=== PATIENT | male | born 1965 | race Caucasian/White ===

== ENCOUNTER 2018-11-12 13:28 | Inpatient (IN) | payer OTHER ==
[~2018-11-12] VITALS: Ht 177.8 cm; Wt 106.6 kg
[2018-11-12 13:32] VITALS: BP 108/81
[2018-11-12] MEDS ORDERED: SYNTHROID50 MCG PO (13:50)
[2018-11-12] MEDS ORDERED: LISINOPRIL10 MG PO (13:50)
[2018-11-12] MEDS ORDERED: FLOMAX0.4 MG PO (13:50)
[2018-11-12] MEDS ORDERED: FISH OIL 1,001000 M2 PO (13:51)
[2018-11-12] MEDS ORDERED: NIACIN 500 MG500 MG PO (13:51)
[2018-11-12] MEDS ORDERED: WELLBUTRIN SR150 MG PO (13:52)
[2018-11-12 13:53] LABS: ABSOLUTE BASOPHILS 0.1 thou/uL (0.0-0.2); ABSOLUTE EOSINOPHILS 0.2 thou/uL (0.0-0.7); ABSOLUTE LYMPHOCYTES 2.1 thou/uL (0.8-5.3); ABSOLUTE MONOCYTES 0.8 thou/uL (0.0-1.2); ABSOLUTE NEUTROPHILS 5.6 thou/uL (1.6-8.1); BASOPHILS 1.3 %; HEMATOCRIT 40.1 % (42.0-52.0); HEMOGLOBIN 13.7 gm/dL (14.0-18.0); LYMPHOCYTES 24.2 %; MCH 30.2 pg (26.0-34.0); MCHC 34.3 g/dL (28.0-37.0); MONOCYTES 8.8 %; MPV 8.1 fl. (7.2-11.1); NUCLEATED RBCS 0 /100WBC; PLATELET COUNT* 234 thou/uL (150-400); POLYS 63.7 %; RBC 4.55 mil/uL (4.50-6.00); RDW-CV 14.2 % (10.5-14.5); WBC 8.8 thou/uL (4.0-11.0)
[2018-11-12 14:08] LABS: ALBUMIN 3.3 g/dL (3.4-5.0); ALKALINE PHOSPHATASE 75 U/L (46-116); ANION GAP 9 mmol/L (7-16); BUN 14 mg/dL (7-18); CALCIUM 8.4 mg/dL (8.5-10.1); CHLORIDE 107 mmol/L (98-107); CO2 27 mmol/L (21-32); GLUCOSE 106 mg/dL (70-99); LIPASE 107 U/L (73-393); MAGNESIUM 2.2 mg/dL (1.8-2.4); NT-PRO BRAIN NAT PEPTIDE 164 pg/mL (<300); POTASSIUM 3.9 mmol/L (3.5-5.1); SGOT 15 U/L (15-37); SGPT 22 U/L (30-65); SODIUM 143 mmol/L (136-145); TOTAL BILIRUBIN 0.2 mg/dL (<0.1-1.0); TOTAL PROTEIN 6.8 g/dL (6.4-8.2); TROPONIN-I LEVEL <0.06 ng/mL (<0.06)
[2018-11-12 15:14] VITALS: BP 115/61
[2018-11-12 15:30] VITALS: BP 93/71
[2018-11-12] MEDS ORDERED: PROTONIX40 M1 PO (16:11)
[2018-11-12] MEDS ORDERED: VITAMIN B-12500 MCG PO (16:12)
[2018-11-12] MEDS ORDERED: DICLOFENAC SODI25 MG PO (16:12)
[2018-11-12] MEDS ORDERED: CRANBERRY400 M1 PO (16:13)
[2018-11-12] MEDS ORDERED: CINNAMON500 MG PO (16:13)
[2018-11-12 16:24] VITALS: BP 104/57
[2018-11-12 17:21] VITALS: BP 146/62
--- NOTE | 2018-11-12 18:17 | NUR ---
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 ORDERED TRACING A-FIB RATE 150'S- PT A&O X4- CONTINENT OF BOWEL AND BLADDER- UP AD-IRA IN ROOM, STEADY GAIT NOTED- LCTA, DIMMINISHED IN BASES- RESP EVEN AND UN-LABORED- VS 97.5 20 93/71 81 97% ON RA- IV CARDIZEM IN PLACE AT 10ML/HR ORDERED- ABD SOFT/ROUND/NON-TENDER, BS X4 QUADS- PT REPORTS BM THIS AM- IV NOTED TO RIGHT AC- SKIN C/D/I WIT NOTED TATOOS- RIGHT UE PATCH NOTED THAT PT REPORTS TO BE CHANGED 1X PER WEEK TO TELL IF HE HAS BEEN USING DRUGS; BELIEVED TO BE SWEAT PATCH- PT REPORTS TO BE DAILY SMOKER- HAS OWN TEETH AND WEARS GLASSES FOR READING- CARDIOLOGY CONSULTED AND HERE TO ASSESS WITH ORDERS NOTED FOR CARDIZEM DRIP TAPER AND METOPROLOL IV PER DANE 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,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-PT FOUND TO HAVE CONVERTED TO SR AROUND 1615- UPON CHECKING BP AT 1645 PT BP NOTED TO BE 76/53, DRIP DECREASED TO 5ML/HR AND DANE ANGELES NOTIFIED WITH ORDERS TO HOLD METOPROLOL AND GIVE 250CC BOLUS THAT HAS SINCE BEEN COMPLETED- BP AT 1715 NOTED TO BE 140/62, AND AT 1810 108/69- EKG OBTAINED AND NOTED WITH SR R/T RYTHUM CHANGE AND PLACED ON CHART FOR VIEWING- ECHO ORDERED AND COMPLETED THIS SHIFT WITH RESULTS PENDING AT THIS TIME- CARDIZEM CONTINUES AT 5ML/HR, HR CURRENLTY SR AT 81- PT GIVEN LOW SODIUM DIET AND REFUSED, REGULAR DIET IN PLACE PER REFFUSAL-GOOD PO INTAKE NOTED WITH DINNER- PT DENIES ANY C/O PAIN/DISCOMFORT AT THIS TIME-CALL LIGHT AND PERSONAL BELONGINGS WITH IN REACH- PT MAKES NEEDS KNOWN- ALL NEEDS MET AT THIS TIME-WCTM
[2018-11-12 20:00] VITALS: BP 94/51
[2018-11-13] VITALS: BP 104/67
[2018-11-13 04:00] VITALS: BP 138/87
--- NOTE | 2018-11-13 06:42 | NUR ---
ASSUMED PT CARE AT 191. PT TRACING SINUS RHYTHM AT START OF SHIFT. BP 94/51 PULSE 68. CARDIZEM DRIP TURNED OFF. METOPROLOL HELD THIS SHIFT FOR LOW BP/LOW PULSE. NO CHEST PAIN THIS SHIFT, HOURLY ROUNDING COMPLETED, CALL LIGHT WITHIN REACH.
[2018-11-13 08:00] VITALS: BP 137/68
--- NOTE | 2018-11-13 09:10 | EKG ---
[place] [address] ELECTROCARDIOGRAM REPORT Name: IRENA DUONGEL Room: [address] ADM IN ..#: [id number] Admission: 11/12/18 Attend Phys: Vera Aquino MD Discharge: Date of : 61 Report #: [id number] THIS REPORT FOR: //name// 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
--- NOTE | 2018-11-13 09:11 | EKG ---
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
[2018-11-13] MEDS ORDERED: FLECAINIDE ACET50 M1 PO (09:16)
[2018-11-13] MEDS ORDERED: CARDIZEM CD120 MG PO (09:16)
[2018-11-13] MEDS ORDERED: ASPIR 8181 MG PO (09:16)
--- NOTE | 2018-11-13 09:23 | 2DMMODE ---
[place] [address] 2 D/M-MODE ECHOCARDIOGRAM Name: CHLOE DUONG Room: [address] IN [facility]#: [id number] Admission: 11/12/18 Attend Phys: Vera Aquino, Discharge: Date of : 61 Date of Service: 11/13/18 0923 Report #: [id number] THIS REPORT FOR: //name// APPROVED REPORT Study performed: 11/12/2018 16:23:17 EXAM: Comprehensive 2D, Doppler, and color-flow Echocardiogram Patient Location: In-Patient Room [facility] Status: routine BSA: 2.21 HR: 70 bpm BP: 93/71 mmHg Rhythm: NSR Other Information Study Quality: Excellent Indications Atrial Fibrillation 2D Dimensions IVSd: 12.43 (7-11mm) LVOT Diam: 22.83 (18-24mm) LVDd: 41.39 mm PWd: 11.17 (7-11mm) Ascending Ao: 36.39 (22-36mm) LVDs: 28.91 (25-40mm) Aortic Root: 37.26 mm Volumes Left Atrial Volume (Systole) LA ESV Index: 19.30 mL/m2 Aortic Valve AoV Peak Miah.: 1.36 m/s AO Peak Gr.: 7.36 mmHg LVOT Max P.30 mmHg AO Mean Gr.: 4.20 mmHg LVOT Mean P.92 mmHg LVOT Max V: 1.04 m/s AO V2 VTI: 24.16 cm LVOT Mean V: 0.62 m/s BRENDA (VTI): 3.48 cm2 LVOT V1 VTI: 20.54 cm Mitral Valve E/A Ratio: 1.08 MV Decel. Time: 193.52 ms MV E Max Miah.: 0.77 m/[place] [address] 2 D/M-MODE ECHOCARDIOGRAM Name: CHLOE DUONG Room: [address] IN .R.#: [id number] Admission: 11/12/18 Attend Phys: Vera Aquino, Discharge: Date of : 61 Date of Service: 11/13/18 0923 Report #: [id number] MV PHT: 56.12 ms MVA (PHT): 3.92 cm2 TDI E/Lateral E': 5.92 E/Medial E': 8.56 Medial E' Miah.: 0.09 m/s Lateral E' Miah.: 0.13 m/s Pulmonary Valve PV Peak Miah.: 1.06 m/s PV Peak Gr.: 4.52 mmHg Left Ventricle The left ventricle is normal size. There is normal LV segmental wall motion. Mild concentric left ventricular hypertrophy. Left ventricular systolic function is normal. The left ventricular ejection fraction is within the normal range. LVEF is 50-55%. The left ventricular diastolic function is normal. Right Ventricle The right ventricle is normal size. The right ventricular systolic function is normal. Atria The left atrium size is normal. The right atrium size is normal. Aortic Valve The aortic valve is normal in structure. No aortic regurgitation is present. There is no aortic valvular stenosis. Mitral Valve The mitral valve is normal in structure. Trace mitral regurgitation. No evidence of mitral valve stenosis. Tricuspid Valve The tricuspid valve is normal in structure. Trace tricuspid regurgitation. Pulmonic Valve The pulmonary valve is normal in structure. There is no pulmonic valvular regurgitation. Great Vessels The aortic root is normal in size. IVC is normal in size and collapses >50% [place] [address] 2 D/M-MODE ECHOCARDIOGRAM Name: CHLOE DUONG Room: [address] IN [facility]#: [id number] Admission: 11/12/18 Attend Phys: Vera Aquino, Discharge: Date of : 61 Date of Service: 11/13/18 0923 Report #: [id number] Pericardium There is no pericardial effusion. <Conclusion> Mild concentric left ventricular hypertrophy. LVEF is 50-55%. <ELECTRONICALLY SIGNED> By: Jony Cain MD, FACC 11/13/18922 2 2 Jony Cain MD, [facility] /INF
[2018-11-13] MEDS ORDERED: SYNTHROID50 MCG PO (12:28)
--- NOTE | 2018-11-13 12:32 | EKG ---
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
[2018-11-13 12:49] VITALS: BP 141/86
--- NOTE | 2018-11-13 13:03 | NUR ---
VSS, ASSUMED CARE IN THE AM, ASSESSMENT PERFORMED AND CHARTED, FALL ORECATIONS IN PLACE AND CALL LIGHT IN REACH, PT IS A&O4, ON RA, UP AD IRA, TRACING SR ON THE MONITOR, PT DENIES ANY PAIN, HIS GOAL IS TO D/C TO HOME, AT THIS TIME I HAVE RECIEVED D/C ORDERS, FILLED OUT D/C PAPERS, TOOK OUT IV AND TELE MONITOR, PROVITED SCRIPTS AND INFO MED SHEETS, PT DENIES ANY QUESTIONS AT TIME OF D/C HOURLY ROUNDS COMPLETED.
== END 2018-11-13 13:45 | disposition home or self-care (01) | DRG 310 ==
LOC: M.ERS 13:28 → M.TBA-ER 14:16 → M.2W 14:16
PROVIDERS: Emergency Medicine Emergency Medical Services; ADMIT Internal Medicine
DX: I48.0 Paroxysmal atrial fibrillation (principal); I10 Essential (primary) hypertension; E03.9 Hypothyroidism, unspecified; K21.9 Gastro-esophageal reflux disease without esophagitis; F15.10 Other stimulant abuse, uncomplicated; F17.210 Nicotine dependence, cigarettes, uncomplicated; Z79.899 Other long term (current) drug therapy; Z72.89 Other problems related to lifestyle

== ENCOUNTER 2018-11-26 09:42 | Inpatient (IN) | payer OTHER ==
[~2018-11-26] VITALS: Ht 177.8 cm; Wt 104.6 kg
[~2018-11-26 09:42] MED LIST: ASPIR 8181 MG PO; CARDIZEM CD120 MG PO; CINNAMON500 MG PO; CRANBERRY400 M1 PO; DICLOFENAC SODI25 MG PO; FISH OIL 1,001000 M2 PO; FLECAINIDE ACET50 M1 PO; FLOMAX0.4 MG PO; LISINOPRIL10 MG PO; NIACIN 500 MG500 MG PO; PROTONIX40 M1 PO; SYNTHROID50 MCG PO; VITAMIN B-12500 MCG PO; WELLBUTRIN SR150 MG PO
[2018-11-26 09:47] VITALS: BP 89/45
[2018-11-26 10:08] LABS: ABSOLUTE BASOPHILS 0.1 thou/uL (0.0-0.2); ABSOLUTE LYMPHOCYTES 1.2 thou/uL (0.8-5.3); ABSOLUTE MONOCYTES 0.8 thou/uL (0.0-1.2); BASOPHILS 0.7 %; EOSINOPHILS 0.4 %; HEMATOCRIT 39.8 % (42.0-52.0); HEMOGLOBIN 13.6 gm/dL (14.0-18.0); LYMPHOCYTES 14.7 %; MCHC 34.2 g/dL (28.0-37.0); MCV 87.7 fL (80.0-100.0); MONOCYTES 9.4 %; MPV 7.8 fl. (7.2-11.1); NUCLEATED RBCS 0 /100WBC; PLATELET COUNT* 245 thou/uL (150-400); POLYS 74.8 %; RBC 4.54 mil/uL (4.50-6.00); RDW-CV 14.5 % (10.5-14.5)
[2018-11-26 10:17] LABS: APTT 30.9 Seconds (25.0-31.3); INR 1.1; PROTIME 10.8 Seconds (9.20-11.50)
[2018-11-26 10:26] LABS: ANION GAP 9 mmol/L (7-16); BUN 14 mg/dL (7-18); CALCIUM 8.5 mg/dL (8.5-10.1); CHLORIDE 104 mmol/L (98-107); CO2 24 mmol/L (21-32); CREATININE 1.3 mg/dL (0.6-1.3); GLUCOSE 103 mg/dL (70-99); POTASSIUM 3.9 mmol/L (3.5-5.1); SODIUM 137 mmol/L (136-145); TROPONIN-I LEVEL <0.06 ng/mL (<0.06)
[2018-11-26 10:27] LABS: ALKALINE PHOSPHATASE 57 U/L (46-116); LIPASE 60 U/L (73-393); MAGNESIUM 1.9 mg/dL (1.8-2.4); NT-PRO BRAIN NAT PEPTIDE 1907 pg/mL (<300); SGOT 25 U/L (15-37); SGPT 32 U/L (30-65); TOTAL BILIRUBIN 0.5 mg/dL (<0.1-1.0); TOTAL PROTEIN 6.9 g/dL (6.4-8.2)
[2018-11-26 12:05] VITALS: BP 109/87
[2018-11-26 12:30] VITALS: BP 97/79
--- NOTE | 2018-11-26 17:07 | EKG ---
[place] [address] ELECTROCARDIOGRAM REPORT Name: RHODACHLOE Room: [address] ADM IN M.R.#: [id number] Admission: 11/26/18 Attend Phys: Camilo Mckenzie, Discharge: Date of : 61 Report #: [id number] THIS REPORT FOR: //name// [facility] ED Test Date: 2018-11-26 Test Time: 09:45:00 Pat Name: CHLOE DUONG Department: Room: 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: HEIDI : 1965 Requested By: Dimitri Easley Order Number: [id number] MD: Murphy Silver Measurements Intervals [place] Rate: 149 P: [place]: QRS: -60 QRSD: 133 T: -65 QT: 334 QTc: 526 Interpretive Statements Atrial flutter with varied AV block, Abnormal T, consider ischemia, inferior leads Compared to ECG 11/13/2018 08:19:27 T-wave abnormality now present Possible ischemia now present Sinus rhythm no longer present Electronically Signed On 11-26-2018 17:07:04 CDT by Murphy Silver [email or web address] <ELECTRONICALLY SIGNED> By: Murphy Silver MD, FAC 11/26/18 1707 0945 0945 Murphy Silver MD, [facility] /EPI
[2018-11-26 17:26] VITALS: BP 97/57
[2018-11-26 20:09] VITALS: BP 88/52
[2018-11-26 20:31] LABS: AMP/METHAMP Negative (Negative); BARBITURATES Negative (Negative); BENZODIAZEPINES Negative (Negative); COCAINE Negative (Negative); METHADONE Negative (Negative); OPIATES Negative (Negative); PCP Negative (Negative); THC Negative (Negative)
[2018-11-27] VITALS: BP 109/57
[2018-11-27 04:00] VITALS: BP 102/44
[2018-11-27 05:12] LABS: HEMATOCRIT 33.5 % (42.0-52.0); MCH 30.4 pg (26.0-34.0); MCHC 34.4 g/dL (28.0-37.0); MCV 88.4 fL (80.0-100.0); MPV 8.3 fl. (7.2-11.1); RBC 3.79 mil/uL (4.50-6.00); RDW-CV 14.9 % (10.5-14.5); WBC 8.1 thou/uL (4.0-11.0)
[2018-11-27 05:21] LABS: HEMOGLOBIN 11.5 gm/dL (14.0-18.0)
[2018-11-27 05:38] LABS: CALCIUM 8.4 mg/dL (8.5-10.1); CREATININE 1.1 mg/dL (0.6-1.3); POTASSIUM 4.1 mmol/L (3.5-5.1)
[2018-11-27 08:00] VITALS: BP 122/82
[2018-11-27 12:22] VITALS: BP 122/82
--- NOTE | 2018-11-27 13:18 | EKG ---
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: : 1965 Requested By: Olivia Castillo Order Number: [id number] Reading MD: Murphy Silver Measurements Intervals [place] Rate: 69 P: 55 [place]: 165 QRS: 28 QRSD: 109 T: 30 QT: 391 QTc: 419 Interpretive Statements Sinus rhythm Baseline wander in lead(s) V6 Compared to ECG 11/26/2018 09:45:00 Atrial flutter no longer present T-wave abnormality no longer present Possible ischemia no longer present Electronically Signed On 11-27-2018 13:17:59 CDT by Murphy Silver [email or web address] <ELECTRONICALLY SIGNED> By: Murphy Silver MD, FAC 11/27/18 1317 Murphy Silver MD, [facility] /EPI
== END 2018-11-27 13:54 | disposition home or self-care (01) | DRG 309 ==
LOC: M.ERS 09:42 → M.2W 11:04 → M.TBA-ER 11:04 → M.2W 12:07
PROVIDERS: Emergency Medicine Emergency Medical Services; ADMIT Family Medicine
DX: I48.0 Paroxysmal atrial fibrillation (principal); I24.8 Other forms of acute ischemic heart disease; I10 Essential (primary) hypertension; E03.9 Hypothyroidism, unspecified; K21.9 Gastro-esophageal reflux disease without esophagitis; I48.92 Unspecified atrial flutter; F17.210 Nicotine dependence, cigarettes, uncomplicated; J44.9 Chronic obstructive pulmonary disease, unspecified; F41.9 Anxiety disorder, unspecified; F32.9 Major depressive disorder, single episode, unspecified; Z79.82 Long term (current) use of aspirin; Z79.899 Other long term (current) drug therapy; Z98.52 Vasectomy status

== ENCOUNTER 2018-11-30 11:29 | Inpatient (IN) | payer OTHER ==
[~2018-11-30] VITALS: Ht 61 cm; Wt 100.7 kg
[2018-11-30 11:32] VITALS: BP 111/74
[2018-11-30 11:57] LABS: ABSOLUTE BASOPHILS 0.1 thou/uL (0.0-0.2); ABSOLUTE LYMPHOCYTES 1.3 thou/uL (0.8-5.3); ABSOLUTE MONOCYTES 0.8 thou/uL (0.0-1.2); ABSOLUTE NEUTROPHILS 9.3 thou/uL (1.6-8.1); BASOPHILS 0.5 %; EOSINOPHILS 0.2 %; HEMATOCRIT 37.9 % (42.0-52.0); LYMPHOCYTES 11.1 %; MCH 29.9 pg (26.0-34.0); MCHC 34.4 g/dL (28.0-37.0); MCV 86.9 fL (80.0-100.0); MONOCYTES 6.9 %; MPV 8.5 fl. (7.2-11.1); NUCLEATED RBCS 0 /100WBC; PLATELET COUNT* 228 thou/uL (150-400); POLYS 81.3 %; RBC 4.37 mil/uL (4.50-6.00); RDW-CV 14.6 % (10.5-14.5); WBC 11.4 thou/uL (4.0-11.0)
[2018-11-30 12:16] LABS: ANION GAP 11 mmol/L (7-16); BUN 12 mg/dL (7-18); CALCIUM 8.5 mg/dL (8.5-10.1); CHLORIDE 100 mmol/L (98-107); CO2 26 mmol/L (21-32); CREATININE 1.2 mg/dL (0.6-1.3); GLUCOSE 125 mg/dL (70-99); POTASSIUM 3.4 mmol/L (3.5-5.1); SODIUM 137 mmol/L (136-145); TROPONIN-I LEVEL <0.06 ng/mL (<0.06)
[2018-11-30 12:17] LABS: ALBUMIN 3.2 g/dL (3.4-5.0); ALKALINE PHOSPHATASE 64 U/L (46-116); LIPASE 83 U/L (73-393); MAGNESIUM 1.7 mg/dL (1.8-2.4); NT-PRO BRAIN NAT PEPTIDE 1416 pg/mL (<300); SGOT 16 U/L (15-37); SGPT 24 U/L (30-65); TOTAL BILIRUBIN 0.3 mg/dL (<0.1-1.0); TOTAL PROTEIN 7.5 g/dL (6.4-8.2)
[2018-11-30 16:06] VITALS: BP 118/84
--- NOTE | 2018-11-30 16:50 | EKG ---
[place] [address] ELECTROCARDIOGRAM REPORT Name: IRENA DUONGEL Room: [address] ADM IN .R.#: [id number] Admission: 11/30/18 Attend Phys: Jony Cain MD, F Discharge: Date of : 61 Report #: [id number] THIS REPORT FOR: //name// [facility] ED Test Date: 2018-11-30 Test Time: 11:35:04 Pat Name: CHLOE DUONG Department: Room: [facility] Gender: M Coordinator Of Genetic Services: UNKNOWN : 1965 Requested By: Dimitri Easley Order Number: [id number] MD: Murphy Silver Measurements Intervals [place] Rate: 125 P: [place]: QRS: 7 QRSD: 137 T: -64 QT: 349 QTc: 504 Interpretive Statements Atrial flutter with 2:1 AV block IVCD, consider atypical RBBB Compared to ECG 11/27/2018 08:23:16 2:1 AV block now present Sinus rhythm no longer present Electronically Signed On 11-30-2018 16:50:14 CDT by Murphy Silver [email or web address] <ELECTRONICALLY SIGNED> By: Murphy Silver MD, FACC 11/30/18 1650 1135 1135 Murphy Silver MD, [facility] /EPI
[2018-11-30 16:53] VITALS: BP 102/72
[2018-11-30 20:57] VITALS: BP 113/62
[2018-12-01] VITALS (8 sets, daily range): BP systolic 89–192; BP diastolic 51–89
--- NOTE | 2018-12-01 15:55 | EKG ---
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 Communications: : 1965 Requested By: Olivia Castillo Order Number: [id number] Reading MD: Murphy Silver Measurements Intervals [place] Rate: 70 P: 67 [place]: 165 QRS: 66 QRSD: 110 T: 37 QT: 402 QTc: 434 Interpretive Statements Sinus rhythm Compared to ECG 11/30/2018 11:35:04 Atrial flutter no longer present 2:1 AV block no longer present Electronically Signed On 12-01-2018 15:54:46 CDT by Murphy Silver [email or web address] <ELECTRONICALLY SIGNED> By: Murphy Silver MD, [facility] 12/01/18 1554 0840 0840 Murphy Silver MD, [facility] /EPI
[2018-12-02 04:00] VITALS: BP 122/56
[2018-12-02 08:47] VITALS: BP 117/72
[2018-12-02 12:00] VITALS: BP 123/68
[2018-12-02 14:07] VITALS: BP 123/68
--- NOTE | 2018-12-02 14:19 | EKG ---
[place] [address] ELECTROCARDIOGRAM REPORT Name: CHLOE DUONG Room: [address] ADM IN M.R.#: [id number] Admission: 11/30/18 Attend Phys: Jony Cain MD, F Discharge: Date of : 61 Report #: [id number] THIS REPORT FOR: //name// [facility] Test Date: 2018-12-02 Test Time: 08:14:02 Pat Name: CHLOE DUONG Department: Room: 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
[2018-12-02 16:00] VITALS: BP 124/85
[2018-12-02] MEDS ORDERED: SORINE 80 MG TA80 M1 PO (16:12)
[2018-12-02 16:19] VITALS: BP 123/68
--- NOTE | 2018-12-03 18:19 | EKG ---
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
== END 2018-12-02 16:30 | disposition home or self-care (01) | DRG 309 ==
LOC: M.ERS 11:29 → M.2W 12:25 → M.TBA-ER 12:25 → M.ERS 16:07 → M.2W 16:29
PROVIDERS: Emergency Medicine Emergency Medical Services; ADMIT Internal Medicine Cardiovascular Disease
DX: I48.0 Paroxysmal atrial fibrillation (principal); D68.69 Other thrombophilia; I10 Essential (primary) hypertension; I48.92 Unspecified atrial flutter; F17.210 Nicotine dependence, cigarettes, uncomplicated; F15.10 Other stimulant abuse, uncomplicated; K21.9 Gastro-esophageal reflux disease without esophagitis; E03.9 Hypothyroidism, unspecified; Z79.82 Long term (current) use of aspirin; Z79.899 Other long term (current) drug therapy

== ENCOUNTER 2018-12-22 00:48 | Observation (INO) | payer OTHER ==
[~2018-12-22] VITALS: Ht 177.8 cm; Wt 103.9 kg
[2018-12-22] VITALS (7 sets, daily range): BP systolic 92–135; BP diastolic 60–81
[~2018-12-22 00:48] MED LIST changes: +SORINE 80 MG TA80 M1 PO
[2018-12-22 01:19] LABS: ABSOLUTE BASOPHILS 0.1 thou/uL (0.0-0.2); ABSOLUTE EOSINOPHILS 0.2 thou/uL (0.0-0.7); ABSOLUTE LYMPHOCYTES 2.1 thou/uL (0.8-5.3); ABSOLUTE MONOCYTES 0.7 thou/uL (0.0-1.2); EOSINOPHILS 3.2 %; HEMATOCRIT 43.6 % (42.0-52.0); HEMOGLOBIN 14.9 gm/dL (14.0-18.0); LYMPHOCYTES 29.6 %; MCH 30.3 pg (26.0-34.0); MCHC 34.2 g/dL (28.0-37.0); MCV 88.5 fL (80.0-100.0); MONOCYTES 10.3 %; MPV 8.2 fl. (7.2-11.1); NUCLEATED RBCS 0 /100WBC; PLATELET COUNT* 210 thou/uL (150-400); POLYS 55.9 %; RBC 4.93 mil/uL (4.50-6.00); RDW-CV 16.2 % (10.5-14.5); WBC 7.2 thou/uL (4.0-11.0)
[2018-12-22 01:33] LABS: ANION GAP 11 mmol/L (7-16); BUN 14 mg/dL (7-18); CALCIUM 8.9 mg/dL (8.5-10.1); CHLORIDE 106 mmol/L (98-107); CO2 25 mmol/L (21-32); CREATININE 1.3 mg/dL (0.6-1.3); GLUCOSE 98 mg/dL (70-99); POTASSIUM 3.5 mmol/L (3.5-5.1); SODIUM 142 mmol/L (136-145); TROPONIN-I LEVEL <0.06 ng/mL (<0.06)
[2018-12-22 01:34] LABS: ALBUMIN 3.6 g/dL (3.4-5.0); ALKALINE PHOSPHATASE 88 U/L (46-116); LIPASE 121 U/L (73-393); NT-PRO BRAIN NAT PEPTIDE 118 pg/mL (<300); SGOT 18 U/L (15-37); SGPT 24 U/L (30-65); TOTAL BILIRUBIN 0.3 mg/dL (<0.1-1.0); TOTAL PROTEIN 7.6 g/dL (6.4-8.2)
--- NOTE | 2018-12-22 10:41 | EKG ---
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 Professor Of Voice: CARL : 1965 Requested By: Colette Flannery Order Number: [id number] MD: Hector Estes Measurements Intervals [place] Rate: 76 P: 25 [place]: 149 QRS: 10 QRSD: 106 T: 35 QT: 371 QTc: 418 Interpretive Statements Sinus rhythm Compared to ECG 12/02/2018 15:33:34 No significant changes Electronically Signed On 12-22-2018 10:41:30 CDT by Hector Estes [email or web address] <ELECTRONICALLY SIGNED> By: Hector Estes MD, [facility] 12/22/18 1041 0056 0056 Hector Estes MD, [facility] /EPI
--- NOTE | 2018-12-22 12:30 | CARDNUC ---
[place] [address] CARDIAC NUCLEAR IMAGING REPORT Name: CHLOE DUONG Room: [address] IN [facility]#: [id number] Admission: 12/22/18 Attend Phys: Carter Moon, Discharge: Date of : 61 Date of Service: 12/22/18 1229 Report #: [id number] THIS REPORT FOR: //name// APPROVED REPORT Imaging Protocol: Rest Tc-99m/Stress Tc-99m 1 day Study performed: 12/22/2018 07:34:00 Indication: Chest pain, Dyspnea, Hypotension, Dizziness, Palpitations Patient Location: In-Patient Room #: 232 Stress Tech: Tomasa Rogers Stress Nurse: Danielle Del Toro RN Ht: 5 ft 10 in Wt: 231 lbs BSA: 2.22 m2 HR: 58 bpm BP: 114/83 mmHg BMI: 33.14 Rhythm: Atrial Fibrillation Medical History Medications: Aspirin, Diltiazem, Sotalol Cardiac Risk Factors: Tobacco History (Current/Recent), Age Resting Data Rest SPECT myocardial perfusion imaging was performed in supine position 30 minutes following the intravenous injection of 10.7 mCi of Tc-99m Sestamibi. Time of rest injection: 08:30 The images were gated to evaluate regional wall motion and calculate left ventricular ejection fraction. Administration Route: IV Administration Site: Left AC Pharmacologic Stress Pharmacologic stress test was performed by injecting Regadenoson 0.4 mg IV push over 10-15 seconds immediately followed by the intravenous injection of 35.6 mCi of Tc-99m Sestamibi. Time of stress injection: 09:45 Administration Route: IV Administration Site: Left AC Heart Rate at time of stress injection: 80 bpm. Gated Stress SPECT was performed 40 minutes after stress injection. The images were gated to evaluate regional [place] [address] CARDIAC NUCLEAR IMAGING REPORT Name: CHLOE DUONG Room: [address]#: [id number] Admission: 12/22/18 Attend Phys: Carter Moon, Discharge: Date of : 61 Date of Service: 12/22/18 1229 Report #: [id number] left ventricular ejection fraction. Prone imaging was performed. Stress Test Details Stress Test: Pharmacologic stress testing performed using 0.4 mg of regadenoson per 5 mL given IV over 10 seconds. Reason for pharmacologic stress test: Dizziness, Afib, Hypotension. HR Max Heart Rate (APMHR): 165 bpm Resting HR: 58 bpm Target HR (85% APMHR): 140 bpm Max HR Achieved: 80 bpm % of APMHR: 48 Recovery HR: 69 bpm HR response to stress: Normal HR response to stress BP Resting BP: 114/83 mmHg Max BP: 152/50 mmHg Recovery BP: 124/72 mmHg BP response to stress: Normal blood pressure response to stress. ECG Resting ECG: Sinus Rhythm Stress ECG: Sinus Rhythm ST Change: None Arrhythmia: None Recovery ECG: Sinus Rhythm Recovery ST Change: None Clinical Reason for Termination: Completed protocol Stress Symptoms: None Stress ECG Conclusion negative ecg Study Quality Study: Good Artifact: Mild Diaphragmatic artifact Lung Uptake: Normal Perfusion STRESS SPECT images show a small mild intensity inferior defect which is noted to be fixed when compared to the SPECT rest images. There is uniform uptake of tracer in all other segments. [place] [address] CARDIAC NUCLEAR IMAGING REPORT Name: CHLOE DUONG Room: [address] IN [facility]#: [id number] Admission: 12/22/18 Attend Phys: Carter Moon, Discharge: Date of : 61 Date of Service: 12/22/18 1229 Report #: [id number] normalization of the inferior defect indicating it is likely artifact. No reversible defects are seen. Images were reviewed using [employer]. Wall Motion normal all segments Nuclear Conclusion ECG Findings: negative for ischemia Clinical Findings: negative for ischemia Nuclear Findings: negative for ischemia Exercise Capacity: not assessed Left Ventricular Function: normal Risk Study: low Negative perfusion nuclear stress test for ischemia or infarct. <Conclusion> negative ecg <ELECTRONICALLY SIGNED> By: Hector Estes MD, FAC 12/22/18 1229 1229 1229 Hector Estes MD, [facility] /INF
[2018-12-23] VITALS: BP 114/78
[2018-12-23 04:00] VITALS: BP 107/70
[2018-12-23 08:45] VITALS: BP 156/91
[2018-12-23 10:49] LABS: AMP/METHAMP Negative (Negative); BARBITURATES Negative (Negative); BENZODIAZEPINES Negative (Negative); COCAINE Negative (Negative); METHADONE Negative (Negative); OPIATES Negative (Negative); PCP Negative (Negative); THC Negative (Negative)
[2018-12-23 13:00] VITALS: BP 135/85
== END 2018-12-23 13:13 | disposition home or self-care (01) ==
LOC: M.ERS 00:48 → M.2W 04:29 → M.TBA-ER 04:29 → M.2W 04:29
PROVIDERS: Emergency Medicine; Registered Nurse; ADMIT Internal Medicine
DX: I95.9 Hypotension, unspecified (principal); R55 Syncope and collapse; I48.91 Unspecified atrial fibrillation; F10.99 Alcohol use, unspecified with unspecified alcohol-induced disorder; I10 Essential (primary) hypertension; E03.9 Hypothyroidism, unspecified; K21.9 Gastro-esophageal reflux disease without esophagitis; R42 Dizziness and giddiness; R07.89 Other chest pain; I48.0 Paroxysmal atrial fibrillation; F17.220 Nicotine dependence, chewing tobacco, uncomplicated; Z79.82 Long term (current) use of aspirin; Z79.899 Other long term (current) drug therapy

== ENCOUNTER → 2019-02-08 | Outpatient (CLI) | payer OTHER ==
[2019-02-09 21:07] LABS: HIV-1/HIV-2 ANTIBODY Non Reactive (Non Reactive)
== END ==
LOC: M.LAB 19:09
PROVIDERS: Nurse Practitioner Family
DX: N50.819 Testicular pain, unspecified (principal)